=== PATIENT | male | born 1980 | race Caucasian/White ===

== ENCOUNTER 2017-03-12 07:04 | Outpatient (CLI) | payer OTHER ==
--- NOTE | 2017-03-12 10:12 | CT ---
NECK CT WITH CONTRAST: INDICATION: Tonsillar malignancy, prior chemotherapy. FINDINGS: There is abnormal soft tissue thickening of the right aspect of the glottis with medial deviation and focal prominence of the right vocal cord. The aryepiglottic folds are also thickened bilaterally. There is mild effacement of each piriform sinus. Epiglottis is borderline thickened. Preepiglottic space is maintained. Nasopharynx is free from significant mass effect. No abnormal enlargement of t he palatine tonsillar regions. There is mild diffuse fat stranding of the subcutaneous tissues. Sub glottic tracheal air column is patent. There is focal soft tissue prominence of the hypopharynx. Im aged lung apices are clear. Tiny focus of sclerotic density involves the right aspect of the T3 vert ebral body. The thyroid gland is grossly unremarkable. No intrinsic lesion of the submandibular gla nds or within either parotid gland. The salivary glands are increased density which may relate to po st-radiation treatment. Mild mucosal thickening of the incidentally imaged paranasal sinuses present . IMPRESSION: 1. Focal soft tissue prominence and medial deviation of the right vocal cord. This could relate to a focal mass or could relate to redundancy from a medially deviated cord. Recommend correlation with direct visualization. 2. There is diffuse soft tissue prominence involving the region of the hypopharynx and glottis. Thi s could relate to sequelae from prior radiation treatment in the correct clinical context. Otherwise , soft tissue infiltration from neoplasm should be excluded clinically. 3. Additional details are described above. POS: [facility]
[2017-03-12] MEDS ORDERED: Iopamidol 370 76% 100 ML VIAL ONE (11:31)
== END 2017-03-12 07:05 | disposition home or self-care (01) ==
LOC: CT 07:04
PROVIDERS: ATTEND Radiology Radiation Oncology
DX: C77.0 Secondary and unspecified malignant neoplasm of lymph nodes of head, face and neck (principal); C09.9 Malignant neoplasm of tonsil, unspecified
CPT/HCPCS: 70491

== ENCOUNTER 2017-07-13 08:01 | Outpatient (CLI) | payer OTHER ==
[2017-07-13] MEDS ORDERED: Iopamidol 370 76% 100 ML VIAL ONE (08:03)
== END 2017-07-13 08:02 | disposition home or self-care (01) ==
LOC: BICCT 08:01
PROVIDERS: ATTEND Radiology Radiation Oncology
DX: Z02.9 Encounter for administrative examinations, unspecified (principal); C77.0 Secondary and unspecified malignant neoplasm of lymph nodes of head, face and neck
CPT/HCPCS: 70491

== ENCOUNTER 2018-04-12 11:21 | Outpatient (CLI) | payer OTHER ==
--- NOTE | 2018-04-12 13:44 | RAD ---
CHEST TWO VIEWS: History: Cancer of tonsil. Evaluate for mets. Comparison: None. FINDINGS: Lungs are clear. No pneumothorax or effusion. Cardiac silhouette and mediastinal contours are within normal limits. No evidence of metastatic disease. IMPRESSION: No evidence for metastatic disease. POS: [facility]
== END 2018-04-12 11:22 | disposition home or self-care (01) ==
LOC: BICRAD 11:21
PROVIDERS: ATTEND Radiology Radiation Oncology
DX: Z08 Encounter for follow-up examination after completed treatment for malignant neoplasm (principal); Z85.89 Personal history of malignant neoplasm of other organs and systems; Z85.858 Personal history of malignant neoplasm of other endocrine glands; Z92.21 Personal history of antineoplastic chemotherapy; Z92.3 Personal history of irradiation
CPT/HCPCS: 36415; 71046; 84443

== ENCOUNTER 2019-01-06 09:41 | Outpatient (CLI) | payer OTHER ==
--- NOTE | 2019-01-06 13:37 | PET ---
PET CT SKULL TO MID THIGH: COMPARISON: Reference is made to prior neck CT exams 03/12/2017, 08/24/2016. HISTORY: History of squamous cell carcinoma, parotid gland, tongue mass. TECHNIQUE: A PET/CT was performed from the skull to the mid thigh after administration of 11.1 millicuries of F- 18 FDG. Evaluation was performed on a [employer] workstation. FINDINGS: NECK: No focal hypermetabolic lesions. The previously described redundancy, and medial deviation of t he right vocal cord, as well as soft tissue prominence of the hypopharynx is stable morphologically, and is subjectively within normal limits of physiologic activity. No discrete hyperm etabolic lesion of this region is localized. CHEST: No areas of hypermetabolic activity. ABDOMEN/PELVIS: No areas of hypermetabolic activity. SKELETON: No areas of hypermetabolic activity. CT images used for attenuation correction show advanced for age vascular calcification.. IMPRESSION: No evidence of hypermetabolic disease. Transcribed Date/Time: 01/06/2019 1:49 PM
== END 2019-01-06 09:42 | disposition home or self-care (01) ==
LOC: PET 09:41
PROVIDERS: ATTEND Specialist
DX: Z08 Encounter for follow-up examination after completed treatment for malignant neoplasm (principal); Z85.828 Personal history of other malignant neoplasm of skin
CPT/HCPCS: 78815; A9552